=== PATIENT | male | born 1995 | race Two or more races ===

== ENCOUNTER 2016-02-13 13:24 | Emergency (ER) | payer MEDICAID, OTHER ==
--- NOTE | 2016-02-13 14:43 | RAD ---
History: Left-sided chest pain and cough for 4 days. Comparison: None. Technique: 2 views Findings: The soft tissue and bony structures are unremarkable. The heart size is appropriate. No infiltrate, effusion or pneumothorax is observed. The hilar and mediastinal structures are normal. Impression: 1. A negative 2 view chest
[2016-02-13] MEDS ORDERED: IBUPROFEN 600 MG TABLET ONE (16:19)
[2016-02-13] MEDS ORDERED: ACETAMINOPHEN 325 MG TABLET ONE (16:19)
== END 2016-02-13 16:49 | disposition home or self-care (01) ==
LOC: ED 13:24
DX: R05 Cough (principal); B34.9 Viral infection, unspecified
CPT/HCPCS: 71020; 87804; 99283 ×2; A9270 ×2